=== PATIENT | male | born 1960 | race Hispanic/Latino ===

== ENCOUNTER 2016-11-03 10:17 | Emergency (ER) | payer SELFPAY ==
--- NOTE | 2016-11-03 11:09 | RAD ---
TWO VIEWS CHEST: Comparison: None. History: Shortness of breath, dyspnea. FINDINGS: Two views of the chest shows normal sized cardiomediastinal silhouette. There is blunting of the lef t costophrenic angle which may represent scarring or a small left pleural effusion. No consolidation is seen. IMPRESSION: Small left pleural effusion versus left basilar scarring. POS: [facility]
--- NOTE | 2016-11-03 11:11 | RAD ---
THREE VIEWS LUMBOSACRAL SPINE: Comparison: None. History: Low back pain. FINDINGS: Three views of the lumbosacral spine shows normal height and alignment of the vertebral bodies and i ntervertebral discs without fracture or subluxation. There are small osteophytes in the lumbar spine . IMPRESSION: Mild degenerative changes of the lumbar spine without acute osseous abnormality. POS: [facility]
[2016-11-03 13:05] LABS: #Basophils 0.1 thou/uL (0.0-0.2); #Lymphocytes 2.3 thou/uL (1.20-3.40); #Monocytes 1.3 thou/uL (0.11-0.59); #Neutrophils 9.6 thou/uL (1.40-6.50); %Basophils 0.6 % (0.0-1.0); %Eosinophils 0.4 % (0.0-10.0); %Monocytes 9.8 % (0.0-10.0); Hematocrit 43.8 % (42.0-52.0); Mean Platelet Volume 7.3 fL (7.4-10.4); Red Blood Cell (RBC) Count 4.67 mill/uL (4.70-6.10); White Blood Cell (WBC) Count 13.3 thou/uL (4.8-10.8)
[2016-11-03 13:31] LABS: ALT (SGPT) 30 U/L (8-55); AST (SGOT) 28 U/L (5-34); Alkaline Phosphatase 122 U/L (40-150); Anion Gap 13 mmol/L (10-20); BUN (Urea Nitrogen) 19 mg/dL (8.4-25.7); Bilirubin, Total 2.2 mg/dL (0.2-1.2); CK (CPK) 200 U/L (30-200); Calc. Creatinine Clearance 0 mL/min (70-130); Calcium 9.5 mg/dL (7.8-10.44); Carbon Dioxide 28 mmol/L (22-29); Chloride 93 mmol/L (98-107); Estimated GFR-MDRD Greater than 90; Globulin 4.8 g/dL (2.4-3.5); Lipase 4 U/L (8-78); Protein, Total 8.7 g/dL (6.0-8.3)
[2016-11-03 13:35] LABS: Troponin I Less than 0.010 ng/mL (< 0.028)
--- NOTE | 2016-11-03 15:13 | CT ---
CT ARTERIOGRAM CHEST WITH IV CONTRAST AND 3D MIP IMAGING: History: Chest pain. Dyspnea. FINDINGS: There is good contrast opacification of the pulmonary arteries and thoracic aorta with normal branch ing of the great vessels. Bibasilar lung atelectasis is present with minimal bilateral pleural fluid . No lobar consolidation or parenchymal lung mass are visible. Nonspecific lymph nodes are scattered about the mediastinum. IMPRESSION: 1. No CT evidence of pulmonary embolus. 2. COPD. Minimal bilateral pleural effusions with bibasilar atelectasis. POS: [facility]
[2016-11-03] MEDS ORDERED: ISOVUE-370 76%-LOCM 1 ML ONE (16:01)
== END 2016-11-03 15:20 | disposition home or self-care (01) ==
LOC: ERS 10:17
DX: M54.5 Low back pain (principal); R06.00 Dyspnea, unspecified; F17.210 Nicotine dependence, cigarettes, uncomplicated
CPT/HCPCS: 71020; 71275; 72100; 80053; 82550; 82553; 83690; 84484; 85025; 85379; 94760; 96360

== ENCOUNTER 2018-08-20 18:14 | Emergency (ER) | payer SELFPAY ==
[2018-08-20] MEDS ORDERED: Naloxone HCl 0.4 mg/ml Vial ONE (19:18)
== END 2018-08-20 21:32 | disposition home or self-care (01) ==
LOC: ERS 18:14
DX: T40.1X1A Poisoning by heroin, accidental (unintentional), initial encounter (principal); F17.210 Nicotine dependence, cigarettes, uncomplicated
CPT/HCPCS: 96361; 96374; J2310